=== PATIENT | female | born 1995 | race Caucasian/White ===

== ENCOUNTER 2025-08-16 14:17 | Outpatient (RCR) | payer BC, SELFPAY ==
[2025-08-16 14:50] VITALS: BP 137/84
[2025-08-16] MEDS: NSS 250 IV (15:02)
[2025-08-16] MEDS: VENOFER 55 MG IV (15:02)
[2025-08-16 16:10] VITALS: BP 152/75
== END 2025-09-08 23:59 | disposition home or self-care (01) ==
LOC: OID 14:17
PROVIDERS: ATTENDING PHYSICIAN Psychiatry & Neurology Neurology; FAMILY PHYSICIAN Nurse Practitioner Adult Health
DX: R79.0 Abnormal level of blood mineral (principal); R76.89 Other specified abnormal immunological findings in serum
CPT/HCPCS: 96361; 96365; J1756